=== PATIENT | male | born 1990 | race African-American/Black ===

== ENCOUNTER 2018-02-05 05:57 | Emergency (ER) | payer BC | END 2018-02-05 06:42 | disposition home or self-care (01) | LOC: ERS 05:57 | DX: R11.0 Nausea (principal); J45.909 Unspecified asthma, uncomplicated | CPT/HCPCS: 93005 ==

== ENCOUNTER 2020-05-16 21:24 | Observation (INO) | payer BC, OTHER ==
--- NOTE | 2020-05-16 21:53 | RAD ---
Chest AP view INDICATION: Covid positive with cough and shortness of breath COMPARISON: October 10, 2016 FINDINGS: Lungs: There is hazy opacity within the right upper lobe and left midlung Cardiac silhouette: The cardiomediastinal silhouette appears within normal limits. Pulmonary vasculature: Normal Pleural spaces: No pleural effusion or pneumothorax is demonstrated. Upper abdomen: No abnormality seen. Osseous structures: No acute osseous abnormality. Additional findings: None. IMPRESSION: Right upper lobe and left midlung airspace opacities consistent with pneumonia.
[2020-05-16] MEDS ORDERED: Ibuprofen 200 MG TAB ONE (22:55)
[2020-05-16] MEDS ORDERED: Dexamethasone 4 mg/ml Vial ONE (23:09)
[2020-05-16] MEDS ORDERED: Acetaminophen 500 MG TAB ONE (23:09)
[2020-05-16 23:11] LABS: Band 6 % (5-11); Hemoglobin 14.5 g/dL (14.0-18.0); Lymphocytes 38 % (21-51); MDiff Complete? YES; Mean Corpuscular HGB CONC 34.5 g/dL (32.0-36.0); Mean Corpuscular Hemoglobin 31.3 pg (27.0-31.0); Mean Corpuscular Volume 90.6 fL (78.0-98.0); Mean Platelet Volume 9.1 fL (7.4-10.4); Monocytes 11 % (0-10); Neutrophil 43 % (42-75); Platelet Count 155 thou/uL (130-400); RBC Distribution Width 11.8 % (11.5-14.5); Red Blood Cell (RBC) Count 4.63 mill/uL (4.70-6.10); White Blood Cell (WBC) Count 4.1 thou/uL (4.8-10.8)
[2020-05-16 23:20] LABS: ALT (SGPT) 32 U/L (8-55); AST (SGOT) 28 U/L (5-34); Albumin 4.1 g/dL (3.5-5.0); Alkaline Phosphatase 83 U/L (40-110); Anion Gap 12 mmol/L (10-20); BUN (Urea Nitrogen) 9 mg/dL (8.9-20.6); Bilirubin, Total 0.8 mg/dL (0.2-1.2); Calc. Creatinine Clearance 0 mL/min (70-130); Carbon Dioxide 26 mmol/L (22-29); Chloride 104 mmol/L (98-107); Estimated GFR-MDRD Greater than 90; Globulin 3.8 g/dL (2.4-3.5); Glucose 107 mg/dL (70-105); Potassium 4.3 mmol/L (3.5-5.1); Protein, Total 7.9 g/dL (6.0-8.3); Sodium 138 mmol/L (136-145)
[2020-05-16] MEDS ORDERED: Enoxaparin Sodium 100 MG/ML SYRINGE ONE (23:46)
[2020-05-16] MEDS ORDERED: Azithromycin 500 MG VIAL ONE (23:46)
[2020-05-16] MEDS ORDERED: Enoxaparin Sodium 80 MG/0.8 ML SYRINGE ONE (23:48)
[2020-05-17] MEDS ORDERED: Acetaminophen 325 MG TAB PO PRN (02:04)
--- NOTE | 2020-05-17 03:07 | HP ---
REASON FOR ADMISSION: Cough. HISTORY OF PRESENT ILLNESS: This is a 30-year-old morbidly obese patient who developed a cough and was diagnosed with COVID-19 approximately 4 days ago. He continued to have symptoms and feeling fatigued, presented again through the emergency room. He denied being short of breath. Denied nausea, vomiting, or diarrhea. PAST MEDICAL HISTORY: 1. Asthma. 2. Lymphedema, complicated by cellulitis and sepsis. SOCIAL HISTORY: Does not smoke. Does not drink alcohol. FAMILY HISTORY: Positive for diabetes. REVIEW OF SYSTEMS: All systems reviewed, except the above-mentioned cough, found to be negative. ALLERGIES: NO KNOWN DRUG ALLERGIES. PHYSICAL EXAMINATION: GENERAL: He is awake, alert, and oriented, does not appear in distress. VITAL SIGNS: His blood pressure is 157/92, heart rate of 112, respiratory rate 24, and saturating 95% on room air. HEENT: Head is nontraumatic, normocephalic. Pupils equal, reactive. Extraocular movements are intact. Nonicteric sclerae. Well-injected conjunctivae. Oral mucosa normal. Nasal mucosa normal. NECK: Supple. No adenopathy. No murmur. Thyroid is not palpable. Trachea is midline. No supraclavicular adenopathy. HEART: S1 and S2 regular. No murmur. No gallops. No friction rubs. Nondisplaced PMI. LUNGS: Poor inspiratory effort. No wheezes. No rhonchi. No crackles. ABDOMEN: Bowel sounds are positive. Nontender abdomen. No hepatosplenomegaly. EXTREMITIES: He does have 2+ edema in bilateral lower extremity. NEUROLOGIC: Cranial nerves 2 through 12 within normal limits. Normal motor function. Normal sensory function. Normal reflexes. LABORATORY: Blood work shows a WBC of 4.1, hemoglobin 14.5, and platelets of 155. D-dimer 0.35. Sodium 138, potassium 4.3, and creatinine 1. IMAGING: A chest x-ray shows right upper lobe and left midlung airspace opacities consistent with pneumonia. ASSESSMENT AND PLAN: This is a 30-year-old male patient presenting with persistence of his cough. He was diagnosed with COVID-19 four days ago. He denies being short of breath. He is not requiring oxygen. Patient will be admitted to med surg under observation and we will continue with IV dexamethasone. He did receive a dose in the ER. I would not cover him with antibiotics since his pneumonia is most likely secondary to COVID-19. For DVT prophylaxis, he will be on Lovenox subcutaneously. Patient is full code. Job ID: [id number]
[2020-05-17 03:32] VITALS: BMI 59.5
[2020-05-17 05:30] LABS: #Lymphocytes 0.6 thou/uL (1.20-3.40); #Monocytes 0.1 thou/uL (0.11-0.59); #Neutrophils 2.6 thou/uL (1.40-6.50); %Basophils 0.3 % (0.0-1.0); %Eosinophils 0.4 % (0.0-10.0); %Lymphocytes 17.4 % (21.0-51.0); %Monocytes 2.7 % (0.0-10.0); %Neutrophils 79.1 % (42.0-75.0); Hemoglobin 13.7 g/dL (14.0-18.0); Mean Corpuscular HGB CONC 31.5 g/dL (32.0-36.0); Mean Corpuscular Hemoglobin 28.7 pg (27.0-31.0); Mean Corpuscular Volume 91.1 fL (78.0-98.0); Mean Platelet Volume 9.8 fL (7.4-10.4); Platelet Count 156 thou/uL (130-400); RBC Distribution Width 11.8 % (11.5-14.5); Red Blood Cell (RBC) Count 4.78 mill/uL (4.70-6.10); White Blood Cell (WBC) Count 3.3 thou/uL (4.8-10.8)
[2020-05-17 05:49] LABS: ALT (SGPT) 32 U/L (8-55); AST (SGOT) 26 U/L (5-34); Alkaline Phosphatase 81 U/L (40-110); Anion Gap 13 mmol/L (10-20); BUN (Urea Nitrogen) 11 mg/dL (8.9-20.6); Bilirubin, Total 0.7 mg/dL (0.2-1.2); Calc. Creatinine Clearance 297 mL/min (70-130); Calcium 9.1 mg/dL (7.8-10.44); Carbon Dioxide 23 mmol/L (22-29); Chloride 106 mmol/L (98-107); Estimated GFR-MDRD Greater than 90; Globulin 3.9 g/dL (2.4-3.5); Glucose 202 mg/dL (70-105); Potassium 4.5 mmol/L (3.5-5.1); Protein, Total 7.9 g/dL (6.0-8.3); Sodium 137 mmol/L (136-145)
[2020-05-17] MEDS: Dexamethasone 6 MG in Sodium Chloride 0.9% 50 ML IVPB SCH (08:16)
[2020-05-17] MEDS: Enoxaparin Sodium 40 MG/0.4 ML SYRINGE SC SCH (08:16)
--- NOTE | 2020-05-17 17:01 | PDOC.HOSPP ---
- Subjective Encounter Date: 05/17/20 Encounter Time: 17:01 Subjective: Mr. Zhu was seen today in follow-up of COVID infection with pneumonia. He says he feels ok. He has been ambulating in the room without difficulty. He denies dyspnea. He doesn't feel ready to go home, because he is concerned about his cough. - Objective Vital Signs & Weight: Vital Signs (12 hours) Temp Pulse Resp BP Pulse Ox 05/17/20 16:00 97.8 F 83 16 174/95 H 100 05/17/20 11:00 97.5 F L 87 16 153/92 H 94 L 05/17/20 08:34 97.5 F L 84 20 158/90 H 97 05/17/20 05:00 97.9 F 21 H Weight Weight 415 lb I&O: 05/16/20 05/17/20 05/18/20 06:59 06:59 06:59 Intake Total 610 Balance 610 Result Diagrams: 05/17/20 05:08 05/17/20 05:08 Hospitalist ROS - Medication Medications: Active Medications Generic Name Dose Route Start Last Admin Trade Name Mendezq PRN Reason Stop Dose Admin Enoxaparin Sodium 40 mg 05/17/20 09:00 05/17/20 08:16 Lovenox SC 40 mg 0900 ZHENG Administration Dexamethasone 6 mg/ Sodium 50.6 mls @ 100 mls/hr 05/17/20 09:00 05/17/20 08: 16 Chloride IVPB 50.6 mls DAILY ZHENG Administration - Exam Eye: PERRL Heart: RRR, no murmur, no gallops, no rubs, normal peripheral pulses Respiratory: CTAB (distant lung sounds, no wheezing or rales) Gastrointestinal: soft, non-tender, non-distended, normal bowel sounds, no palpable masses Extremities: no cyanosis, no edema Skin: normal turgor (pulses are diminished, but palpable) Hosp A/P (1) Pneumonia due to COVID-19 virus Code(s): U07.1 - COVID-19; J12.89 - OTHER VIRAL PNEUMONIA Status: Acute (2) Morbid obesity Code(s): E66.01 - MORBID (SEVERE) OBESITY DUE TO EXCESS CALORIES Status: Chronic - Plan * COVID -19 infection - continue symptomatic care * Continue Decadron * Will monitor one more night in the hospital, and if he has continued stability , can discharge home.
[2020-05-17] MEDS ORDERED: Folic Acid/Vit B Comp W-C PO SCH (17:15)
[2020-05-17] MEDS ORDERED: Ascorbic Acid 500 mg Chewable Tablet PO SCH (17:15)
[2020-05-17] MEDS ORDERED: Non-Formulary Item 1 EACH (Ventolin Hfa Inhaler [Ventolin Hfa Inhaler] 2 PUFF) INH PRN (18:40)
[2020-05-17] MEDS ORDERED: cloNIDine 0.1 MG TAB PO PRN (18:41)
[2020-05-17] MEDS ORDERED: hydrALAZINE 20 MG/ML VIAL SLOW IVP PRN (18:41)
[2020-05-17] MEDS ORDERED: Albuterol 200 PUFF (6.7GM INHALER) INH PRN (18:50)
[2020-05-17] MEDS: guaiFENesin ER 600 MG TAB PO SCH (20:42)
[2020-05-17] MEDS ORDERED: Amlodipine 5 MG TAB PO SCH (21:00)
[2020-05-17] MEDS ORDERED: Ibuprofen 800 MG TAB PO SCH (21:45)
[2020-05-18] MEDS: Enoxaparin Sodium 40 MG/0.4 ML SYRINGE SC SCH (07:59)
[2020-05-18] MEDS: guaiFENesin ER 600 MG TAB PO SCH (07:59)
[2020-05-18] MEDS: Dexamethasone 6 MG in Sodium Chloride 0.9% 50 ML IVPB SCH (08:07)
[2020-05-18] MEDS ORDERED: guaiFENesin/Codeine Phosphate 200 mg/20 mg 10 ml UD Cup PO PRN (08:18)
[2020-05-18] MEDS: Benzonatate 100 MG CAP PO PRN ×2 (08:27→17:11)
[2020-05-18 08:49] VITALS: BP 137/73; TEMP 98.1
[2020-05-18] MEDS ORDERED: Folic Acid/Vit B Comp W-C PO SCH (09:00)
[2020-05-18] MEDS ORDERED: Amlodipine 5 MG TAB PO SCH (09:00)
[2020-05-18] MEDS ORDERED: Ascorbic Acid 500 mg Chewable Tablet PO SCH (09:00)
[2020-05-18] MEDS ORDERED: Milk Of Magnesia 30 ML UDCUP PO PRN (16:01)
--- NOTE | 2020-05-18 16:04 | PDOC.HOSPP ---
- Subjective Encounter Date: 05/18/20 Encounter Time: 16:02 Subjective: Mr. Zhu was seen today in follow-up of COVID -19 pneumonia. He admits to some cough, but he has not been short of breath. - Objective Vital Signs & Weight: Vital Signs (12 hours) Temp Pulse Resp BP Pulse Ox 05/18/20 08:48 98.1 F 88 18 137/73 94 L Weight Weight 415 lb I&O: 05/17/20 05/18/20 05/19/20 06:59 06:59 06:59 Intake Total 610 1180 Balance 610 1180 Result Diagrams: 05/17/20 05:08 05/17/20 05:08 Hospitalist ROS - Medication Medications: Active Medications Generic Name Dose Route Start Last Admin Trade Name Freq PRN Reason Stop Dose Admin Albuterol Sulfate 2 puff 05/17/20 18:50 05/17/20 21:38 Proventil Hfa INH 2 puff Q6H PRN Administration SOB &/or Wheezing Amlodipine Besylate 5 mg 05/17/20 21:00 05/17/20 21:38 Norvasc PO 5 mg HS ZHENG Administration Ascorbic Acid 1,000 mg 05/18/20 09:00 05/18/20 07:59 Vitamin C PO 1,000 mg DAILY ZHENG Administration Benzonatate 100 mg 05/18/20 08:18 05/18/20 08:27 Tessalon PO 100 mg Q4H PRN Administration Cough Enoxaparin Sodium 40 mg 05/17/20 09:00 05/18/20 07:59 Lovenox SC 40 mg 0900 ZHENG Administration Guaifenesin 600 mg 05/17/20 21:00 05/18/20 07:59 Mucinex PO 600 mg Q12HR ZHENG Administration Dexamethasone 6 mg/ Sodium 50.6 mls @ 100 mls/hr 05/17/20 09:00 05/18/20 08: 07 Chloride IVPB 50.6 mls DAILY ZHENG Administration Sodium Chloride 10 ml 05/18/20 09:00 05/18/20 09:04 Flush - Normal Saline IVF Not Given Q12HR ZHENG Vitamin B Complex/Vit C/Folic Acid 1 tab 05/18/20 09:00 05/18/20 07:59 Nephro-Tri Tablet PO 1 tab DAILY ZHENG Administration - Exam Eye: PERRL, anicteric sclera Heart: RRR, no murmur, no gallops, no rubs, normal peripheral pulses Respiratory: CTAB, no wheezes, no rales, no ronchi Gastrointestinal: soft, non-distended Extremities: no cyanosis, no edema Hosp A/P (1) Pneumonia due to COVID-19 virus Code(s): U07.1 - COVID-19; J12.89 - OTHER VIRAL PNEUMONIA Status: Acute (2) Morbid obesity Code(s): E66.01 - MORBID (SEVERE) OBESITY DUE TO EXCESS CALORIES Status: Chronic - Plan * COVID -19 infection - he is essentially asymptomatic, with the exception of a cough. His inflammatory markers are low. * He is leary about going home, but he does not have any indication for continued hospitalization. He faced timed his mother , and I explained this to her as well. Should he develop symptoms after leaving the hospital such as shortness of breath, chest pain ect. then he is to return.
--- NOTE | 2020-05-18 18:47 | DIS ---
DATE OF ADMISSION: 05/17/2020 DATE OF DISCHARGE: 05/18/2020 DISCHARGE DISPOSITION: Home. DISCHARGE DIAGNOSES: 1. COVID-19 infection. 2. Asthma. 3. Morbid obesity. DISCHARGE MEDICATIONS: 1. Azithromycin 250 mg p.o. daily. 2. Amlodipine 5 mg at bedtime. 3. Tessalon Perles 100 mg q.4. 4. Pepcid 20 mg twice a day. 5. Ventolin inhaler 2 puffs q.i.d. as needed. 6. Ibuprofen 600 mg p.r.n. CODE STATUS: Full code. ALLERGIES: NO KNOWN DRUG ALLERGIES. HOSPITAL COURSE: Mr. Zhu is a pleasant 30-year-old gentleman who was admitted to the hospital after having complaints of feeling short of breath. He was known COVID-19 positive, which had been diagnosed at least 4 days prior. He was monitored overnight and was found to not have any oxygen requirements. His O2 sats were in the high 90s, 98% to 99% on room air. He was not having any evidence of wheezing on exam. He was ambulatory in the room without difficulty. Inflammatory markers were low and he was a bit anxious about going home. We watched him one additional day to make sure that there was no significant change and today, there was no indication for inpatient hospitalization. Again, he had O2 saturations which were in the mid 90s and was not in any distress. It is known that this virus is unpredictable and I explained to him should his symptoms worsen, he can always come back to the hospital. This was explained to his mother who we face timed in the room. Warning signs for when to come back were given and as such the patient will be discharged home to complete his azithromycin course as well as some Tessalon Perles for subjective cough. Job ID: [id number]
== END 2020-05-18 18:14 | disposition home or self-care (01) ==
LOC: ERS 21:24 → T4-A 05-17 00:49
PROVIDERS: ADMIT Internal Medicine; ATTEND Internal Medicine
DX: U07.1 COVID-19 (principal); J12.89 Other viral pneumonia; J45.909 Unspecified asthma, uncomplicated; E66.01 Morbid (severe) obesity due to excess calories; Z68.43 Body mass index [BMI] 50.0-59.9, adult; Z88.8 Allergy status to other drugs, medicaments and biological substances
CPT/HCPCS: 36415; 71045; 80053; 83605; 84484; 85025; 85379; 86140; 96361; 96365; 96372; 96375; 96376; G0378; J0456; J1100; J1650

== ENCOUNTER 2020-06-06 12:09 | Emergency (ER) | payer BC, OTHER ==
--- NOTE | 2020-06-06 13:09 | RAD ---
EXAM: CHEST ONE VIEW HISTORY: Cough. Covid positive. COMPARISON: 05/16/2020 FINDINGS: The cardiac silhouette and pulmonary vasculature is within normal limits. Airspace opacities seen in the right upper lung zone and left midlung zone are not well appreciated on the current study, but this exam is limited by technique. No new areas of consolidation or pleural fluid are seen. No other interval change. IMPRESSION: Limited examination secondary to technique, but there is suggestion of improvement in the parenchymal opacities within the lungs bilaterally
== END 2020-06-06 13:28 | disposition home or self-care (01) ==
LOC: ERS 12:09
DX: U07.1 COVID-19 (principal); I10 Essential (primary) hypertension; J45.909 Unspecified asthma, uncomplicated
CPT/HCPCS: 71045

== ENCOUNTER 2023-02-24 21:30 | Emergency (ER) | payer OTHER ==
[2023-02-24 22:20] LABS: Hemoglobin 15.4 g/dL (14.0-18.0); Mean Corpuscular HGB CONC 33.5 g/dL (32.0-36.0); Mean Corpuscular Hemoglobin 31.7 pg (27.0-31.0); Mean Corpuscular Volume 94.5 fl (78.0-98.0); Mean Platelet Volume 8.6 fL (7.4-10.4); Platelet Count 186 10x3/uL (130-400); Red Blood Cell (RBC) Count 4.87 mill/uL (4.70-6.10); White Blood Cell (WBC) Count 6.2 10x3/uL (4.8-10.8)
[2023-02-24 22:52] LABS: Band 3 % (5-11); Eosinophils 4 % (0-10); Lymphocytes 40 % (21-51); MDiff Complete? YES; Monocytes 15 % (0-10); Neutrophil 31 % (42-75); Platelet Morphology Comment Appears Adequate; RBC Morphology Normal; Reactive Lymphocytes 5 % (0-10)
[2023-02-24 23:02] LABS: ALT (SGPT) 48 U/L (8-55); AST (SGOT) 37 U/L (5-34); Albumin 4.5 g/dL (3.5-5.0); Alkaline Phosphatase 96 U/L (40-110); Anion Gap 14 mmol/L (10-20); BUN (Urea Nitrogen) 12 mg/dL (8.9-20.6); Bilirubin, Total 0.8 mg/dL (0.2-1.2); Calc. Creatinine Clearance 0 mL/min (70-130); Calcium 9.6 mg/dL (7.8-10.44); Carbon Dioxide 26 mmol/L (22-29); Chloride 102 mmol/L (98-107); Estimated GFR 83; Globulin 3.8 g/dL (2.4-3.5); Glucose 112 mg/dL (70-105); Potassium 4.1 mmol/L (3.5-5.1); Protein, Total 8.3 g/dL (6.0-8.3); Sodium 138 mmol/L (136-145)
[2023-02-25] MEDS ORDERED: Albuterol 200 PUFF INH ONE (00:25)
== END 2023-02-25 00:33 | disposition home or self-care (01) ==
LOC: ERS 21:30
DX: J18.9 Pneumonia, unspecified organism (principal); I10 Essential (primary) hypertension; Z20.822 Contact with and (suspected) exposure to COVID-19
CPT/HCPCS: 36415; 71045; 80053; 85025; 93005; U0003; U0005

== ENCOUNTER 2023-06-10 19:11 | Emergency (ER) | payer BC, SELFPAY ==
[2023-06-10 20:56] LABS: #Basophils 0.1 thou/uL (0.0-0.2); #Eosinphils 0.3 thou/uL (0.0-0.7); #Monocytes 0.8 thou/uL (0.11-0.59); #Neutrophils 4.1 thou/uL (1.40-6.50); %Basophils 0.8 % (0.0-1.0); %Eosinophils 3.8 % (0.0-10.0); %Lymphocytes 28.9 % (21.0-51.0); %Monocytes 10.6 % (0.0-10.0); %Neutrophils 53.3 % (42.0-75.0); Hemoglobin 13.2 g/dL (14.0-18.0); Mean Corpuscular HGB CONC 33.5 g/dL (32.0-36.0); Mean Corpuscular Hemoglobin 30.4 pg (27.0-31.0); Mean Corpuscular Volume 90.8 fl (78.0-98.0); Mean Platelet Volume 10.4 fL (7.4-10.4); Platelet Count 258 10x3/uL (130-400); Red Blood Cell (RBC) Count 4.34 mill/uL (4.70-6.10); White Blood Cell (WBC) Count 7.6 10x3/uL (4.8-10.8)
[2023-06-10 21:52] LABS: ALT (SGPT) 34 U/L (8-55); AST (SGOT) 20 U/L (5-34); Albumin 4.1 g/dL (3.5-5.0); Alkaline Phosphatase 86 U/L (40-110); Anion Gap 14 mmol/L (10-20); BUN (Urea Nitrogen) 13 mg/dL (8.9-20.6); Bilirubin, Total 0.5 mg/dL (0.2-1.2); CK (CPK) 142 U/L (30-200); Calc. Creatinine Clearance 0 mL/min (70-130); Calcium 9.3 mg/dL (7.8-10.44); Carbon Dioxide 24 mmol/L (22-29); Chloride 105 mmol/L (98-107); Estimated GFR 97; Globulin 3.7 g/dL (2.4-3.5); Glucose 92 mg/dL (70-105); Protein, Total 7.8 g/dL (6.0-8.3); Sodium 139 mmol/L (136-145)
== END 2023-06-10 20:51 | disposition home or self-care (01) ==
LOC: ERS 19:11
DX: I89.0 Lymphedema, not elsewhere classified (principal); L03.116 Cellulitis of left lower limb; I10 Essential (primary) hypertension
CPT/HCPCS: 36415; 80053; 82550; 85025; 99283